=== PATIENT | female | born 1985 | race American Indian/Alaskan Native ===

== ENCOUNTER 2017-07-27 13:17 | Inpatient (IN) | payer OTHER ==
[2017-07-27 13:41] VITALS: BMI 51.2
[2017-07-27 14:34] LABS: BASO # 0.02 K/mm3 (0.0-2.0); BASO % 0.2 % (0.0-3.0); EOS # 0.2 (0.0-0.7); EOS % 1.8 % (1.5-5.0); GRAN # 3.25 (1.4-6.5); GRAN % 38.5 % (50.0-68.0); LYMPH # 4.5 (1.2-3.4); LYMPH % 53.3 % (22.0-35.0); MEAN CELL VOLUME 80.6 fl (80.0-105.0); MEAN CORPUSCULAR HGB CONC 32.3 g/dl (31.0-37.0); MEAN PLATELET VOLUME 9.6 fl (7.0-11.0); MONO # 0.5 (0.1-0.6); MONO % 6.2 % (1.0-6.0); RED CELL DISTRIBUTION WIDTH 15.2 % (11.5-14.5); WHITE BLOOD COUNT 8.4 10^3/ul (4.5-11.0)
[2017-07-27 14:40] LABS: INR 1.07 (0.93-1.08); PARTIAL THROMBOPLASTIN TIME 34.5 Seconds (25.1-36.5)
[2017-07-27 14:44] LABS: ALB/GLOB RATIO 1.1 (1.1-1.8); ALKALINE PHOSPHATASE 81 U/L (38-126); ALT/SGPT 32 U/L (7-56); AST/SGOT 22 U/L (14-36); BILIRUBIN,TOTAL 0.7 mg/dL (0.2-1.3); BLOOD UREA NITROGEN 8 mg/dL (7-21); CALCIUM 9.2 mg/dL (8.4-10.5); CARBON DIOXIDE 28 mmol/L (21-33); CHLORIDE 105 mmol/L (98-107); CHOLESTEROL 157 mg/dL (130-200); GFR AFRICAN-AMERICAN > 60; GLUCOSE,RANDOM 85 mg/dL (70-110); POTASSIUM 4.1 mmol/L (3.6-5.0); SODIUM 139 mmol/L (132-148); TOTAL PROTEIN 6.9 g/dL (5.8-8.3)
[2017-07-27 14:58] LABS: TROPONIN I < 0.01 ng/mL
--- NOTE | 2017-07-27 15:05 | CT ---
PROCEDURE: CT HEAD WITHOUT CONTRAST. HISTORY: focal weakness COMPARISON: None available. TECHNIQUE: Axial computed tomography images were obtained through the head/brain without intravenous contrast. Radiation dose: Total exam DLP = 629 mGy-cm. This CT exam was performed using one or more of the following dose reduction techniques: Automated exposure control, adjustment of the mA and/or kV according to patient size, and/or use of iterative reconstruction technique. FINDINGS: HEMORRHAGE: No intracranial hemorrhage. BRAIN: No mass effect or edema. No atrophy or chronic microvascular ischemic changes. VENTRICLES: Unremarkable. No hydrocephalus. CALVARIUM: Unremarkable. PARANASAL SINUSES: Unremarkable as visualized. No significant inflammatory changes. MASTOID AIR CELLS: Unremarkable as visualized. No inflammatory changes. OTHER FINDINGS: None. IMPRESSION: Normal CT of the Head.
--- NOTE | 2017-07-27 15:54 | ED PDOC ---
Arrival/HPI - General Chief Complaint: Weakness/Neurological Deficit Time Seen by Provider: 07/27/17 13:38 Historian: Patient - History of Present Illness Narrative History of Present Illness (Text): 07/27/17 15:55 32yo female with PMHx of TIA, legal blind present with complaint of left sided weakness x 3days. States she was diagnosed with TIA when she had similar symptoms 3years ago and it resolved with therapy. She denies dysathtria, facial drooping, headache, dizziness, chest pain, SOB, trauma, fever, back pain, any other complaint. Past Medical History - Provider Review Nursing Documentation Reviewed: Yes - Neurological Hx Transient Ischemic Attacks (TIA): Yes - HEENT Hx Blind: Yes (bilateral) - Psychiatric Hx Substance Use: No - Surgical History Hx Cholecystectomy: Yes Hx Eye Surgery: Yes - Anesthesia Hx Anesthesia: Yes Hx Anesthesia Reactions: No Hx Malignant Hyperthermia: No Family/Social History - Physician Review Nursing Documentation Reviewed: Yes Family/Social History: Unknown Family HX Smoking Status: Never Smoked Hx Alcohol Use: No Hx Substance Use: No Allergies/Home Meds Allergies/Adverse Reactions: Allergies No Known Allergies Allergy (Verified 07/27/17 13:43) Home Medications: Home Meds Medication Instructions Recorded Confirmed Aspirin [Ecotrin] 81 mg PO DAILY 07/27/17 07/27/17 Brimonidine Tartrate [Alphagan P 1 drop BOTHEYES BID 07/27/17 07/27/17 0.1 % Ophth] Omeprazole 20 mg PO BID 07/27/17 07/27/17 Pantoprazole [Protonix] 40 mg PO DAILY 07/27/17 07/27/17 Review of Systems - Physician Review All systems were reviewed & negative as marked: Yes - Review of Systems Constitutional: Normal Eyes: Normal ENT: Normal Respiratory: Normal Cardiovascular: Normal Gastrointestinal: Normal Genitourinary Female: Normal Musculoskeletal: Normal Skin: Normal Neurological: Focal Weakness. absent: Headache, Dizziness, Gait Changes, Speech Changes, Facial Droop Endocrine: Normal Hemo/Lymphatic: Normal Psychiatric: Normal Physical Exam Vital Signs Reviewed: Yes Vital Signs Temp Pulse Resp BP Pulse Ox 07/27/17 16:04 67 18 119/59 L 95 07/27/17 14:26 61 14 114/58 L 100 07/27/17 13:40 98.0 F 60 18 109/41 L 98 Temperature: Afebrile Blood Pressure: Normal Pulse: Regular Respiratory Rate: Normal Appearance: Positive for: Well-Appearing, Non-Toxic, Comfortable Pain Distress: None Mental Status: Positive for: Alert and Oriented X 3 Finger Stick Blood Glucose: 76 - Systems Exam Head: Present: Atraumatic, Normocephalic Pupils: Present: PERRL, Other (LEgally blind) Extroacular Muscles: Present: EOMI Conjunctiva: Present: Normal Mouth: Present: Moist Mucous Membranes Neck: Present: Normal Range of Motion Respiratory/Chest: Present: Clear to Auscultation, Good Air Exchange. No: Respiratory Distress, Accessory Muscle Use Cardiovascular: Present: Regular Rate and Rhythm, Normal S1, S2. No: Murmurs Abdomen: Present: Normal Bowel Sounds. No: Tenderness, Distention, Peritoneal Signs Back: Present: Normal Inspection Upper Extremity: Present: Normal Inspection. No: Cyanosis, Edema Lower Extremity: Present: Normal Inspection. No: Edema Neurological: Present: GCS=15, CN II-XII Intact, Speech Normal, Motor Func Grossly Intact, Normal Cerebellar Funct, Norm Deep Tendon Reflexes, Memory Normal, Other (LEft focal weakness). No: Normal Sensory Function (Decreased on left upper and lower extremities), Normal 2Pt Descrimination Skin: Present: Warm, Dry, Normal Color. No: Rashes Psychiatric: Present: Alert, Oriented x 3, Normal Insight, Normal Concentration Medical Decision Making ED Course and Treatment: 07/27/17 16:05 32yo female in ED for left sided weakness. Focal weakness of upper and lower extremity was noted. Lab was unremarkable with exception of Triglyceride which was elevated Head CT was negative CXR NAD PT will be admitted for TIA. She will need to see Neuro for further evaluation Case was DW Dr. Guerra and pt was admitted. she request Dr. Todd consult. - Lab Interpretations Lab Results: 07/27/17 14:17 07/27/17 14:17 Lab Results 07/27/17 14:17: Blood Type O NEGATIVE, Antibody Screen Negative, BBK History Checked No verified bt 07/27/17 14:17: Sodium 139, Potassium 4.1, Chloride 105, Carbon Dioxide 28, Anion Gap 10, BUN 8, Creatinine 0.8, Est GFR ( Amer) > 60, Est GFR (Non- Af Amer) > 60, Random Glucose 85, Calcium 9.2, Total Bilirubin 0.7, AST 22, ALT 32, Alkaline Phosphatase 81, Troponin I < 0.01, Total Protein 6.9, Albumin 3.6, Globulin 3.3, Albumin/Globulin Ratio 1.1, Triglycerides 304 H, Cholesterol 157, LDL Cholesterol Direct 82, HDL Cholesterol 30 07/27/17 14:17: PT 11.7, INR 1.07, APTT 34.5 07/27/17 14:17: WBC 8.4, RBC 4.34, Hgb 11.3 L, Hct 35.0 L, MCV 80.6, MCH 26.0, MCHC 32.3, RDW 15.2 H, Plt Count 269, MPV 9.6, Gran % 38.5 L, Lymph % (Auto) 53.3 H, [place] % (Auto) 6.2 H, Eos % (Auto) 1.8, Baso % (Auto) 0.2, Gran # 3.25, Lymph # 4.5 H, [place] # 0.5, Eos # 0.2, Baso # 0.02 - RAD Interpretation Radiology Orders: 07/27/17 14:02 CHEST PORTABLE [RAD] Stat 07/27/17 14:03 HEAD W/O CONTRAST [CT] Stat NIHSS Scale ([place]) Time Performed: 15:30 - How Severe is the Stoke 24 hours post onset S/S Level of Consciousness: 0=Alert LOC to Questions: 0=Both comments correct LOC to commands: 0=Obeys both correctly Facial: 0=Normal Motor Arm - Left: 1=Drift noted before 10 sec Motor Arm - Right: 0=No drift Motor Leg - Left: 1=Drift before 5 sec Motor Leg - Right: 0=No drift Sensory: 1=Mild to moderate loss Best Language: 0=No aphasia Dysarthia: 0=Normal articulation Extinction & Inattention (Neglect): 0=Normal, no object Disposition/Present on Arrival - Present on Arrival Any Indicators Present on Arrival: No History of DVT/PE: No History of Uncontrolled Diabetes: No Urinary Catheter: No History of Decub. Ulcer: No History Surgical Site Infection Following: None - Disposition Have Diagnosis and Disposition been Completed?: Yes Diagnosis: TIA (transient ischemic attack) Disposition: HOSPITALIZED Disposition Time: 16:00 Patient Problems: Current Active Problems Problem Status Onset TIA (transient ischemic attack) Acute Condition: FAIR Referrals: Patrick Hill MD [Primary Care Provider] - Follow up with primary Forms: Bon[employer] (Malagasy)
--- NOTE | 2017-07-27 17:01 | CARD ---
APPROVED REPORT EKG Measurement Heart [id number] <Conclusion> Normal sinus rhythm Normal ECG
[2017-07-27] MEDS ORDERED: Non Formulary Medication (Omeprazole [Omeprazole] 20 MG) PO SCH (18:00)
[2017-07-27] MEDS ORDERED: BRIMONIDINE TARTRATE BOTHEYES SCH (18:00)
[2017-07-27] MEDS: Brimonidine 0.15% 50 DROP/5 ML BOTTLE OU SCH (18:29)
[2017-07-27] MEDS ORDERED: Pneumococcal 23-Valent Vaccine IM ONE (20:33)
[2017-07-27] MEDS ORDERED: Influenza Vaccine 60 mcg/0.5 mL SYR (4YR UP) IM ONE (20:33)
[2017-07-28 07:13] LABS: HEMATOCRIT 36.8 % (36.0-48.0); MEAN CELL VOLUME 80.3 fl (80.0-105.0); MEAN CORPUSCULAR HGB CONC 32.3 g/dl (31.0-37.0); MEAN PLATELET VOLUME 9.1 fl (7.0-11.0); RED CELL DISTRIBUTION WIDTH 15.4 % (11.5-14.5); WHITE BLOOD COUNT 8.4 10^3/ul (4.5-11.0)
[2017-07-28 07:19] LABS: BLOOD UREA NITROGEN 8 mg/dL (7-21); CALCIUM 9.4 mg/dL (8.4-10.5); CARBON DIOXIDE 26 mmol/L (21-33); CHLORIDE 106 mmol/L (98-107); CHOLESTEROL 175 mg/dL (130-200); GFR AFRICAN-AMERICAN > 60; GLUCOSE,RANDOM 84 mg/dL (70-110); POTASSIUM 3.9 mmol/L (3.6-5.0); SODIUM 140 mmol/L (132-148)
[2017-07-28] MEDS: Pantoprazole 40 mg EC Tab PO SCH ×2 (08:27→17:21)
--- NOTE | 2017-07-28 09:27 | CP.PCM.CON ---
<Alvino King - Last Filed: 07/28/17 12:24> History of Present Illness - History of Present Illness History of Present Illness: Neurology consult note for Dr. Todd's service - Willis King PGY2 HPI: Patient is a 32 year-old female with past medical history of transient ischemic attack and legal blindness that presented to [facility] with complaints of left-sided weakness for the past 3 days. Patient reported that she began to feel weakness in her left upper and lower extremity on Tuesday associated with parasthesias in her left leg however ignored these symptoms believing that she may have just slept in an awkward position. She subsequently began to develop worsening of her weakness when ultimately she decided to come in on Tuesday due to being unable to hold/lift objects. Patient stated that she had similar symptoms 3-4 years prior when she went to [facility] for evaluation and was ultimately diagnosed with a TIA. She had undergone physical therapy post diagnoses and was more or less back to baseline. In the ED, a Head CT was done which revealed no acute intracranial abnormalities. EKG revealed normal sinus rhythm with no acute ST-T wave changes. Neurology consulted for evaluation for possible TIA/CVA. Denies chest pain, palpitations, SOB, abdominal pain, nausea, vomiting, fever, chills, cough. 12point ROS as per HPI above otherwise negative PMH: as stated above PSH: multiple eye surgeries, cholecystectomy Allergies: NKDA Family Hx: non-contributory Social Hx: Denies alcohol and illicit drug use Past Patient History - Past Social History Smoking Status: Never Smoked - CARDIAC Hx Cardiac Disorders: No - PULMONARY Hx Respiratory Disorders: Yes Hx Asthma: Yes ( A CHILD) - NEUROLOGICAL Hx Neurological Disorder: Yes Hx Transient Ischemic Attacks (TIA): Yes (2013) - HEENT Hx HEENT Problems: Yes (RETINAL DETACHMENT,GLAUCOMA,CATARACTS 12 YRS AGO WITH SX ) Hx Blind: Yes (bilateral) Hx Cataracts: Yes Hx Glaucoma: Yes - RENAL Hx Chronic Kidney Disease: No - ENDOCRINE/METABOLIC Hx Endocrine Disorders: No - HEMATOLOGICAL/ONCOLOGICAL Hx Blood Disorders: No - INTEGUMENTARY Hx Dermatological Problems: No - MUSCULOSKELETAL/RHEUMATOLOGICAL Hx Musculoskeletal Disorders: No Hx Falls: Yes - GASTROINTESTINAL Hx Gastrointestinal Disorders: No - GENITOURINARY/GYNECOLOGICAL Hx Genitourinary Disorders: No - PSYCHIATRIC Hx Psychophysiologic Disorder: No Hx Substance Use: No - SURGICAL HISTORY Hx Surgeries: Yes (EYE SX) Hx Cholecystectomy: Yes - ANESTHESIA Hx Anesthesia: Yes Hx Anesthesia Reactions: No Hx Malignant Hyperthermia: No Meds Allergies/Adverse Reactions: Allergies Allergy/AdvReac Type Severity Reaction Status Date / Time No Known Allergies Allergy Verified 07/27/17 18:05 - Medications Medications: Current Medications Aspirin (Ecotrin) 81 mg PO DAILY [facility] Brimonidine Tartrate (Alphagan P 0.15% Opht) 0 drop OU BID [facility] Last Admin: 07/27/17 18:29 Dose: 1 drop Pantoprazole Sodium (Protonix Ec Tab) 40 mg PO ACBD [facility] Last Admin: 07/28/17 08:27 Dose: 40 mg Physical Exam - Constitutional Appears: No Acute Distress - Head Exam Head Exam: ATRAUMATIC, NORMAL INSPECTION, NORMOCEPHALIC - Eye Exam Eye Exam: PERRL. absent: Conjunctival injection, Scleral icterus Additional comments: right eye strabismus - ENT Exam ENT Exam: Mucous Membranes Moist - Neck Exam Neck exam: Positive for: Normal Inspection. Negative for: Lymphadenopathy, Tenderness, Thyromegaly - Respiratory Exam Respiratory Exam: Clear to Auscultation Bilateral. absent: Rales, Rhonchi, Wheezes - Cardiovascular Exam Cardiovascular Exam: RRR, +S1, +S2. absent: Clicks, Gallop, JVD, Rubs - GI/Abdominal Exam GI & Abdominal Exam: Soft. absent: Firm, Guarding, Tenderness - Extremities Exam Extremities exam: Positive for: normal inspection. Negative for: pedal edema, tenderness - Neurological Exam Neurological exam: Alert, CN II-XII Intact, Oriented x3 Additional comments: awake, alert, oriented x3, answering questions appropriately right eye strabismus PERRL CN2-12 grossly intact right upper and lower extremity motor strength 5/5 left upper and lower extremity motor strength ~2-3/5 sensation decreased on the left side gait deferred - Psychiatric Exam Psychiatric exam: Normal Affect, Normal Mood - Skin Skin Exam: Dry, Intact, Normal Color, Warm Results - Vital Signs Recent Vital Signs: Last Vital Signs Temp 98.7 F 07/28/17 06:00 Pulse 68 07/28/17 06:00 Resp 20 07/28/17 06:00 BP 99/57 L 07/28/17 06:00 Pulse Ox 97 07/28/17 06:00 - Labs Result Diagrams: 07/28/17 06:20 07/28/17 06:20 Labs: Laboratory Results - last 24 hr 07/27/17 07/28/17 07/28/17 16:08 06:20 06:20 WBC RBC Hgb Hct MCV MCH MCHC RDW Plt Count MPV Sodium 140 Potassium 3.9 Chloride 106 Carbon Dioxide 26 Anion Gap 12 BUN 8 Creatinine 0.8 Est GFR ( Amer) > 60 Est GFR (Non-Af Amer) > 60 Random Glucose 84 Calcium 9.4 Iron 65 TIBC 238.9 L % Saturation 27 Triglycerides 240 H Cholesterol 175 LDL Cholesterol Direct 86 HDL Cholesterol 31 TSH 3rd Generation Blood Type Confirm O NEGATIVE 07/28/17 07/28/17 06:20 06:20 WBC 8.4 RBC 4.58 Hgb 11.9 L Hct 36.8 MCV 80.3 MCH 26.0 MCHC 32.3 RDW 15.4 H Plt Count 265 MPV 9.1 Sodium Potassium Chloride Carbon Dioxide Anion Gap BUN Creatinine Est GFR ( Amer) Est GFR (Non-Af Amer) Random Glucose Calcium Iron TIBC % Saturation Triglycerides Cholesterol LDL Cholesterol Direct HDL Cholesterol TSH 3rd Generation 3.67 Blood Type Confirm Assessment & Plan - Assessment and Plan (Free Text) Plan: 32yo female with history of TIA and legal blindness presents with left upper and lower extremity weakness for past 3 days. Neurology consulted for evaluation of possible TIA/CVA -Brain MRI has been ordered and is pending to evaluate for possible CVA. We will follow up these results. -In the meantime, recommend aspirin 81mg PO daily and lipitor 40mg PO HS for stroke prevention -Carotid doppler pending -Monitor and replete electrolytes as indicated -Avoid fluctuations in systolic BP; maintain systolic blood pressure between 120 -130 -Physical therapy/occupational therapy evaluation -EKG reviewed; normal sinus rhythm with no acute ST-T wave changes -Head CT reviewed; no acute intracranial abnormalities Patient seen and case discussed/reviewed with attending, Dr. Todd - Date & Time Date: 07/28/17 Time: 09:31 <Harman Todd - Last Filed: 07/28/17 13:39> Meds - Medications Medications: Current Medications Aspirin (Ecotrin) 81 mg PO DAILY [facility] Last Admin: 07/28/17 10:02 Dose: 81 mg Atorvastatin Calcium (Lipitor) 10 mg PO DIN [facility] Brimonidine Tartrate (Alphagan P 0.15% Opht) 0 drop OU BID [facility] Last Admin: 07/28/17 10:02 Dose: 1 drop Pantoprazole Sodium (Protonix Ec Tab) 40 mg PO ACBD [facility] Last Admin: 07/28/17 08:27 Dose: 40 mg Results - Vital Signs Recent Vital Signs: Last Vital Signs Temp 99.2 F 07/28/17 12:00 Pulse 69 07/28/17 12:00 Resp 18 07/28/17 12:00 BP 110/81 07/28/17 12:00 Pulse Ox 100 07/28/17 12:00 - Labs Result Diagrams: 07/28/17 06:20 07/28/17 06:20 Labs: Laboratory Results - last 24 hr 07/27/17 07/28/17 07/28/17 16:08 06:20 06:20 WBC RBC Hgb Hct MCV MCH MCHC RDW Plt Count MPV Sodium 140 Potassium 3.9 Chloride 106 Carbon Dioxide 26 Anion Gap 12 BUN 8 Creatinine 0.8 Est GFR ( Amer) > 60 Est GFR (Non-Af Amer) > 60 Random Glucose 84 Hemoglobin A1c Calcium 9.4 Iron 65 TIBC 238.9 L % Saturation 27 Triglycerides 240 H Cholesterol 175 LDL Cholesterol Direct 86 HDL Cholesterol 31 TSH 3rd Generation Blood Type Confirm O NEGATIVE 07/28/17 07/28/17 07/28/17 06:20 06:20 06:20 WBC 8.4 RBC 4.58 Hgb 11.9 L Hct 36.8 MCV 80.3 MCH 26.0 MCHC 32.3 RDW 15.4 H Plt Count 265 MPV 9.1 Sodium Potassium Chloride Carbon Dioxide Anion Gap BUN Creatinine Est GFR ( Amer) Est GFR (Non-Af Amer) Random Glucose Hemoglobin A1c 5.4 Calcium Iron TIBC % Saturation Triglycerides Cholesterol LDL Cholesterol Direct HDL Cholesterol TSH 3rd Generation 3.67 Blood Type Confirm Attending/Attestation - Attestation I have personally seen and examined this patient.: Yes I have fully participated in the care of the patient.: Yes I have reviewed all pertinent clinical information: Yes
[2017-07-28] MEDS: Brimonidine 0.15% 50 DROP/5 ML BOTTLE OU SCH ×2 (10:02→17:21)
[2017-07-28 13:43] LABS: FOLATE 17.8 ng/mL
--- NOTE | 2017-07-28 16:41 | US ---
PROCEDURE: Bilateral carotid artery duplex ultrasound HISTORY: Carotid stenosis PHYSICIAN(S): Sumanth Romero MD. TECHNIQUE: Duplex sonography and color-flow Doppler were used to evaluate the carotid bifurcations and limited segments of the vertebral arteries bilaterally. The exam is limited by body habitus. FINDINGS: There is mild smooth hypoechoic plaque noted at the carotid bifurcations bilaterally. The peak systolic velocity in the proximal right internal carotid artery is 84 cm/sec. This corresponds to a 20 to 39% proximal right ICA stenosis. Normal systolic velocities are noted in the proximal right external carotid artery. There is antegrade flow in the right vertebral artery. The peak systolic velocity in the proximal left internal carotid artery is 86 cm/sec. This corresponds to a 20 to 39% proximal left ICA stenosis. Normal systolic velocities are noted in the proximal left external carotid artery. There is antegrade flow in the left vertebral artery. IMPRESSION: 1. Bilateral 20-39% proximal ICA stenoses. 2. Antegrade flow in both vertebral arteries.
[2017-07-28] MEDS ORDERED: Gadodiamide 287 MG/ML VIAL (20ML) IV ONE (16:50)
--- NOTE | 2017-07-28 20:45 | HP ---
HISTORY OF PRESENT ILLNESS: The patient is a 32-year-old female with past medical history of TIA, blind bilaterally with complaining of left-sided weakness. Three days ago, states that she was diagnosed with TIA when she had similar symptoms 3 years ago and is resolved with therapy. She denies dysarthria, facial droop, headache, dizziness, chest pain, shortness of breath, trauma, fever, back pain, or neck pain. No hematuria. No hematochezia. As per the patient, she became blind when she was 20 years old due to retinal detachment. PAST MEDICAL HISTORY: Transient ischemic attack, blind bilaterally, cholecystectomy, and eye surgery. FAMILY HISTORY: Father and mother noncontributory. HABITS: Never smoked. No drugs. No ethanol. ALLERGIES: THE PATIENT IS NOT ALLERGIC TO ANY MEDICATIONS. HOME MEDICATIONS: Aspirin, eye drops, omeprazole, and Protonix. REVIEW OF SYSTEMS: The patient was seen and examined on the bedside in her room, lying down comfortably. No fatigue, not tired. No shortness of breath. No chest pain. No abdominal pain. No nausea or vomiting. No fever. No chills. Feeling of weakness in the left side; otherwise, no headache. No dizziness. No speech changes. No facial droop. PHYSICAL EXAMINATION: VITAL SIGNS: Temperature 98.0, pulse 60, respiratory rate 18, blood pressure 109/41, and pulse oximetry 98. HEENT: Head; normocephalic and atraumatic. Eyes; legally blind. Nose patent. Mucous membranes moist. NECK: Supple. No carotid bruits, JVD, or thyromegaly. CHEST: Bilaterally symmetrical. HEART: S1 and S2 positive. LUNGS: Clear to auscultation. ABDOMEN: Soft. Bowel sounds present. No organomegaly. EXTREMITIES: No edema. No cyanosis. NEUROLOGIC: The patient is awake and alert. Speech normal. Motor function test grossly normal. Normal cerebellar function. Memory normal. Left focal weakness. SKIN: Warm and dry. Normal color. LABORATORY DATA: White blood cell 8.4, hemoglobin 11.3, hematocrit 35.0, and platelets 269. Sodium 139, potassium 4.1, BUN 8, creatinine 0.8, and glucose 85. ASSESSMENT AND PLAN: Ms. Dhara Henderson is a 32-year-old lady with anemia, legally blind bilaterally, came with left-sided weakness, and rule out transient ischemic attack. Neurology consult called. CAT scan of the head done, reviewed by me. We will do bilateral carotid Doppler of the neck. We will give physical therapy. Normal CAT scan of the head. GI and DVT prophylaxis. Repeat labs. We will follow up. Emili Guerra MD MTDD
--- NOTE | 2017-07-28 21:19 | MRI ---
EXAM: MR Head Without and With Intravenous Contrast EXAM DATE/TIME: 07/28/2017 1:24 PM CLINICAL HISTORY: The patient age is 32 years old and is female; Signs and symptoms; Other: ? CVA; Additional info: R/O CVA Facility exam id and description: Mri br cs brain w wo contrast TECHNIQUE: Magnetic resonance images of the head/brain without and with intravenous contrast in multiple planes. CONTRAST: 15 mL of OMNISCAN administered intravenously. COMPARISON: CT - HEAD W/O CONTRAST 2017-07-27 14:46 FINDINGS: Artifacts: Artifactual foci are seen within the frontal cortices on the diffusion sequence. Brain: There is no definitive restricted diffusion within the brain to suggest acute ischemic change. There is no significant white matter disease. No cerebral edema. No abnormally enhancing intracranial mass is visualized. No midline shift. Ventricles: No ventriculomegaly. Bones/joints: There is a stable lamina papyracea defect of the medial right orbital wall. Sinuses: No acute sinusitis. Mastoid air cells: No mastoid effusion. Orbits: There is abnormal signal intensity within the medial aspect of the right optic globe, suggestive of hemorrhage or mass. Abnormal signal intensity is also identified involving the left optic globe. There is nonvisualization of the optic lenses. Sella: CSF signal intensity expands the sella. This can be associated with an empty sella or intracranial hypertension, although due to deviation of the pituitary stalk to the left, a cystic lesion is considered. There is no pathological enhancement within the sella. IMPRESSION: 1. There is no definitive restricted diffusion within the brain to suggest acute ischemic change. 2. CSF signal intensity expands the sella. This can be associated with an empty sella or intracranial hypertension, although due to deviation of the pituitary stalk to the left, a cystic lesion is considered. There is no pathological enhancement within the sella. A follow-up MRI is recommended. 3. There is abnormal signal intensity within the medial aspect of the right optic globe, suggestive of hemorrhage or mass. Abnormal signal intensity is also identified involving the left optic globe. Further clinical evaluation is recommended. 4. Additional findings described above.
--- NOTE | 2017-07-29 00:58 | PN ---
DATE: SUBJECTIVE: The patient is a 32-year-old female. The patient is seen and examined on the bedside. Denies chest pain or palpitation. No shortness of breath. No abdominal pain. No nausea, vomiting or diarrhea. No chills. No fevers. Still having Marie catheter and want to get rid of that. The patient is bilaterally blind. PHYSICAL EXAMINATION VITAL SIGNS: Temperature 98.2, pulse 88, respiratory rate 18, and blood pressure 110/81. HEENT: Head; normocephalic and atraumatic. Eyes closed. Nose patent. Mucous membranes moist. NECK: Supple. No carotid bruits, JVD, or thyromegaly. CHEST: Bilaterally symmetrical. HEART: S1 and S2 positive. LUNGS: Clear to auscultation. ABDOMEN: Soft. Bowel sounds present. No organomegaly. EXTREMITIES: No edema. No cyanosis. NEUROLOGIC: The patient is awake, blind and oriented x3. MEDICATIONS: Ecotrin,Lipitor, Protonix, and eye drops. LABORATORY DATA: White blood cell 8.4, hemoglobin 11.9, hematocrit 36.8, and platelets 265. Sodium 140, potassium 3.9, BUN 8, creatinine 0.8, and glucose of 85. TIBC 238.9. Triglyceride 240. ASSESSMENT AND PLAN: Ms. Santiago Jules is a 32-year-old lady with hypertriglyceridemia, anemia, went for MRI of the brain and bilateral carotid artery ultrasound. There is no definite restrictive diffusion within the brain to suggest acute ischemic changes. Cerebrospinal fluid signal intensity expanding the sella. This can be associated with an empty sella or intracranial hypertension, although due to deviation of the pituitary stalk to the left, the cystic lesion is considered. There is no pathological enhancement within the sella. Follow up MRI is recommended. There is abnormal signal intensity within the medial aspect of the right optic globe suggestive of hemorrhage or masses. Abnormal signal intensity is also identified involving the left optic globe. Further evaluation is recommended. The patient is bilaterally blind due to retinal detachment. Has second time transient ischemic attack, seen by Neurologist, Dr. Todd. Neurology recommended 81 mg of aspirin and Lipitor 40 mg. Monitoring the platelets and electrolytes. Physical Therapy and Occupational Therapy. GI and DVT prophylaxis. Repeat labs. We will follow up. Emili Guerra MD
[2017-07-29] MEDS: Pantoprazole 40 mg EC Tab PO SCH ×2 (08:12→18:09)
[2017-07-29] MEDS: Brimonidine 0.15% 50 DROP/5 ML BOTTLE OU SCH ×2 (10:56→18:09)
--- NOTE | 2017-07-29 12:55 | CP.PCM.PN ---
<Alvino King - Last Filed: 07/29/17 16:06> Subjective - Date & Time of Evaluation Date of Evaluation: 07/29/17 Time of Evaluation: 12:52 - Subjective Subjective: Neurology progress note for Dr. Todd's service - Willis King PGY2 Patient seen and examined at bedside. No acute overnight events or new complaints. Denies cp, palpitations, SOB. MRI reviewed in conjunction with radiology. Objective - Vital Signs/Intake and Output Vital Signs (last 24 hours): Temp Pulse Resp BP Pulse Ox 98.6 F 76 18 124/73 99 07/29/17 11:48 07/29/17 11:48 07/29/17 11:48 07/29/17 11:48 07/29/17 11:48 Intake and Output: 07/29/17 07/29/17 06:59 18:59 Intake Total 120 Output Total 0 Balance 120 - Medications Medications: Current Medications Aspirin (Ecotrin) 81 mg PO DAILY [facility] Last Admin: 07/29/17 10:56 Dose: 81 mg Atorvastatin Calcium (Lipitor) 40 mg PO DIN [facility] Brimonidine Tartrate (Alphagan P 0.15% Opht) 0 drop OU BID [facility] Last Admin: 07/29/17 10:56 Dose: 1 drop Pantoprazole Sodium (Protonix Ec Tab) 40 mg PO ACBD [facility] Last Admin: 07/29/17 08:12 Dose: 40 mg - Labs Labs: 07/28/17 06:20 07/28/17 06:20 PT 11.7 SECONDS (9.4-12.5) 07/27/17 14:17 INR 1.07 (0.93-1.08) 07/27/17 14:17 APTT 34.5 Seconds (25.1-36.5) 07/27/17 14:17 - Constitutional Appears: No Acute Distress - Eye Exam Additional comments: legally blind strabismus - ENT Exam ENT Exam: Mucous Membranes Moist - Respiratory Exam Respiratory Exam: Clear to Ausculation Bilateral. absent: Rales, Rhonchi, Wheezes - Cardiovascular Exam Cardiovascular Exam: RRR, +S1, +S2. absent: Clicks, Gallop, JVD, Rubs, Murmur - GI/Abdominal Exam GI & Abdominal Exam: Soft, Normal Bowel Sounds. absent: Distended, Firm, Guarding, Rigid, Tenderness, Rebound - Extremities Exam Extremities Exam: Normal Inspection. absent: Pedal Edema, Tenderness - Neurological Exam Neurological Exam: Alert, Awake, Oriented x3 Additional comments: awake, alert, oriented x3, answering questions appropriately CN2-12 grossly intact right upper and lower extremity motor strength 5/5 left upper and lower extremity motor strength ~2-3/5 sensation decreased on the left side gait deferred Assessment and Plan - Assessment and Plan (Free Text) Plan: 32yo female with history of TIA and legal blindness presents with left upper and lower extremity weakness for past 3 days. Neurology consulted for evaluation of possible TIA/CVA -Brain MRI has been reviewed in conjunction with radiology; Recommend outpatient follow up with neurosurgery -In the meantime, recommend aspirin 81mg PO daily and lipitor 40mg PO HS for stroke prevention -Carotid doppler reviewed -Monitor and replete electrolytes as indicated -Avoid fluctuations in systolic BP; maintain systolic blood pressure between 120 -130 -Physical therapy/occupational therapy evaluation -EKG reviewed; normal sinus rhythm with no acute ST-T wave changes -Head CT reviewed; no acute intracranial abnormalities Patient seen and case discussed/reviewed with attending, Dr. Todd <Harman Todd - Last Filed: 07/29/17 16:23> Objective - Vital Signs/Intake and Output Vital Signs (last 24 hours): Temp Pulse Resp BP Pulse Ox 98.6 F 76 18 124/73 99 07/29/17 11:48 07/29/17 11:48 07/29/17 11:48 07/29/17 11:48 07/29/17 11:48 Intake and Output: 07/29/17 07/29/17 06:59 18:59 Intake Total 120 300 Output Total 0 600 Balance 120 -300 - Medications Medications: Current Medications Aspirin (Ecotrin) 81 mg PO DAILY [facility] Last Admin: 07/29/17 10:56 Dose: 81 mg Atorvastatin Calcium (Lipitor) 40 mg PO DIN [facility] Brimonidine Tartrate (Alphagan P 0.15% Opht) 0 drop OU BID [facility] Last Admin: 07/29/17 10:56 Dose: 1 drop Pantoprazole Sodium (Protonix Ec Tab) 40 mg PO ACBD [facility] Last Admin: 07/29/17 08:12 Dose: 40 mg - Labs Labs: 07/28/17 06:20 07/28/17 06:20 PT 11.7 SECONDS (9.4-12.5) 07/27/17 14:17 INR 1.07 (0.93-1.08) 07/27/17 14:17 APTT 34.5 Seconds (25.1-36.5) 07/27/17 14:17 Attending/Attestation - Attestation I have personally seen and examined this patient.: Yes I have fully participated in the care of the patient.: Yes I have reviewed all pertinent clinical information, including history, physical exam and plan: Yes
--- NOTE | 2017-07-29 21:01 | CP.PCM.PN ---
Subjective - Date & Time of Evaluation Date of Evaluation: 07/29/17 Time of Evaluation: 21:01 - Subjective Subjective: Patient was seen at bedside. Complains of pain in centre of neck. Also has some numbness in left arm, same as she came in with. Has no other complaints. Denies any injury. No chest pain , no sob. Medical record was reviewed. This 32 year old woman was admitted with left sided weakness. Has PMH of TIA, bilateral blindness, cholecystectomy, eye surgery. Objective - Vital Signs/Intake and Output Vital Signs (last 24 hours): Temp Pulse Resp BP Pulse Ox 98.5 F 76 18 110/63 97 07/29/17 16:00 07/29/17 18:00 07/29/17 16:00 07/29/17 16:00 07/29/17 16:00 Intake and Output: 07/29/17 07/30/17 18:59 06:59 Intake Total 300 Output Total 600 Balance -300 - Medications Medications: Current Medications Aspirin (Ecotrin) 81 mg PO DAILY [facility] Last Admin: 07/29/17 10:56 Dose: 81 mg Atorvastatin Calcium (Lipitor) 40 mg PO DIN [facility] Last Admin: 07/29/17 18:09 Dose: 40 mg Brimonidine Tartrate (Alphagan P 0.15% Opht) 0 drop OU BID [facility] Last Admin: 07/29/17 18:09 Dose: 1 drop Pantoprazole Sodium (Protonix Ec Tab) 40 mg PO ACBD [facility] Last Admin: 07/29/17 18:09 Dose: 40 mg - Labs Labs: 07/28/17 06:20 07/28/17 06:20 PT 11.7 SECONDS (9.4-12.5) 07/27/17 14:17 INR 1.07 (0.93-1.08) 07/27/17 14:17 APTT 34.5 Seconds (25.1-36.5) 07/27/17 14:17 Laboratory Last Values WBC 8.4 10^3/ul (4.5-11.0) 07/28/17 06:20 RBC 4.58 10^6/uL (3.5-6.1) 07/28/17 06:20 Hgb 11.9 g/dL (12.0-16.0) L 07/28/17 06:20 Hct 36.8 % (36.0-48.0) 07/28/17 06:20 MCV 80.3 fl (80.0-105.0) 07/28/17 06:20 MCH 26.0 pg (25.0-35.0) 07/28/17 06:20 MCHC 32.3 g/dl (31.0-37.0) 07/28/17 06:20 RDW 15.4 % (11.5-14.5) H 07/28/17 06:20 Plt Count 265 10^3/uL (120.0-450.0) 07/28/17 06:20 MPV 9.1 fl (7.0-11.0) 07/28/17 06:20 Gran % 38.5 % (50.0-68.0) L 07/27/17 14:17 Lymph % (Auto) 53.3 % (22.0-35.0) H 07/27/17 14:17 Wake % (Auto) 6.2 % (1.0-6.0) H 07/27/17 14:17 Eos % (Auto) 1.8 % (1.5-5.0) 07/27/17 14:17 Baso % (Auto) 0.2 % (0.0-3.0) 07/27/17 14:17 Gran # 3.25 (1.4-6.5) 07/27/17 14:17 Lymph # 4.5 (1.2-3.4) H 07/27/17 14:17 Wake # 0.5 (0.1-0.6) 07/27/17 14:17 Eos # 0.2 (0.0-0.7) 07/27/17 14:17 Baso # 0.02 K/mm3 (0.0-2.0) 07/27/17 14:17 PT 11.7 SECONDS (9.4-12.5) 07/27/17 14:17 INR 1.07 (0.93-1.08) 07/27/17 14:17 APTT 34.5 Seconds (25.1-36.5) 07/27/17 14:17 Sodium 140 mmol/L (132-148) 07/28/17 06:20 Potassium 3.9 mmol/L (3.6-5.0) 07/28/17 06:20 Chloride 106 mmol/L (98-107) 07/28/17 06:20 Carbon Dioxide 26 mmol/L (21-33) 07/28/17 06:20 Anion Gap 12 (10-20) 07/28/17 06:20 BUN 8 mg/dL (7-21) 07/28/17 06:20 Creatinine 0.8 mg/dl (0.7-1.2) 07/28/17 06:20 Est GFR ( Amer) > 60 07/28/17 06:20 Est GFR (Non-Af Amer) > 60 07/28/17 06:20 POC Glucose (mg/dL) 76 mg/dL (65-110) 07/27/17 14:08 Random Glucose 84 mg/dL (70-110) 07/28/17 06:20 Hemoglobin A1c 5.4 % (4.2-6.5) 07/28/17 06:20 Calcium 9.4 mg/dL (8.4-10.5) 07/28/17 06:20 Iron 65 ug/dL (45-180) 07/28/17 06:20 TIBC 238.9 ug/dL (250-450) L 07/28/17 06:20 % Saturation 27 (20-55) 07/28/17 06:20 Total Bilirubin 0.7 mg/dL (0.2-1.3) 07/27/17 14:17 AST 22 U/L (14-36) 07/27/17 14:17 ALT 32 U/L (7-56) 07/27/17 14:17 Alkaline Phosphatase 81 U/L (38-126) 07/27/17 14:17 Troponin I < 0.01 ng/mL 07/27/17 14:17 Total Protein 6.9 g/dL (5.8-8.3) 07/27/17 14:17 Albumin 3.6 g/dL (3.0-4.8) 07/27/17 14:17 Globulin 3.3 gm/dL 07/27/17 14:17 Albumin/Globulin Ratio 1.1 (1.1-1.8) 07/27/17 14:17 Triglycerides 240 mg/dL (35-160) H 07/28/17 06:20 Cholesterol 175 mg/dL (130-200) 07/28/17 06:20 LDL Cholesterol Direct 86 mg/dL (0-129) 07/28/17 06:20 HDL Cholesterol 31 mg/dL (29-60) 07/28/17 06:20 Vitamin B12 359 pg/mL (239-931) 07/28/17 06:20 Folate 17.8 ng/mL 07/28/17 06:20 TSH 3rd Generation 3.67 mIU/mL (0.46-4.68) 07/28/17 06:20 Blood Type O NEGATIVE 07/27/17 14:17 Blood Type Confirm O NEGATIVE 07/27/17 16:08 Antibody Screen Negative 07/27/17 14:17 BBK History Checked No verified bt 07/27/17 14:17 - Constitutional Appears: Well, No Acute Distress - Head Exam Head Exam: ATRAUMATIC, NORMAL INSPECTION, NORMOCEPHALIC - Eye Exam Additional comments: Bilateral blindness. - ENT Exam ENT Exam: Normal External Ear Exam - Neck Exam Neck Exam: Normal Inspection - Respiratory Exam Respiratory Exam: NORMAL BREATHING PATTERN - Cardiovascular Exam Cardiovascular Exam: absent: JVD - GI/Abdominal Exam GI & Abdominal Exam: absent: Distended - Rectal Exam Rectal Exam: Deferred - Exam Additional comments: Deferred. - Extremities Exam Extremities Exam: Normal Inspection - Back Exam Back Exam: NORMAL INSPECTION - Neurological Exam Neurological Exam: Alert, Oriented x3 - Psychiatric Exam Psychiatric exam: Normal Affect, Normal Mood - Skin Skin Exam: Normal Color Assessment and Plan - Assessment and Plan (Free Text) Assessment: Neck pain. Left arm tingling. Obesity. Bilateral blindness. Hx TIA. Elevated triglycerides. Plan: Tylenol 975 mg PO x 1. Continue present management as per PMD.
--- NOTE | 2017-07-30 00:35 | CP.PCM.PN ---
<ChaneyMagdalena - Last Filed: 07/30/17 00:30> Subjective - Date & Time of Evaluation Date of Evaluation: 07/29/17 Time of Evaluation: 10:30 - Subjective Subjective: 32yr Black female with h/o strabismus, TIA, L upper & L lower extremity weakness. She is legally blind. Marie catheter was removed and she reports being able to void w/o any urinary retention. She is resting comfortably in bed. Denies any SOB, constipation, N/V, diarrhea, chills, urinary changes, or distress. Objective - Vital Signs/Intake and Output Vital Signs (last 24 hours): Temp Pulse Resp BP Pulse Ox 98.5 F 76 18 110/63 97 07/29/17 16:00 07/29/17 18:00 07/29/17 16:00 07/29/17 16:00 07/29/17 16:00 Intake and Output: 07/29/17 07/30/17 18:59 06:59 Intake Total 300 Output Total 600 Balance -300 - Medications Medications: Current Medications Aspirin (Ecotrin) 81 mg PO DAILY [facility] Last Admin: 07/29/17 10:56 Dose: 81 mg Atorvastatin Calcium (Lipitor) 40 mg PO DIN [facility] Last Admin: 07/29/17 18:09 Dose: 40 mg Brimonidine Tartrate (Alphagan P 0.15% Opht) 0 drop OU BID [facility] Last Admin: 07/29/17 18:09 Dose: 1 drop Pantoprazole Sodium (Protonix Ec Tab) 40 mg PO ACBD [facility] Last Admin: 07/29/17 18:09 Dose: 40 mg - Labs Labs: 07/28/17 06:20 07/28/17 06:20 PT 11.7 SECONDS (9.4-12.5) 07/27/17 14:17 INR 1.07 (0.93-1.08) 07/27/17 14:17 APTT 34.5 Seconds (25.1-36.5) 07/27/17 14:17 - Constitutional Appears: Well - Head Exam Head Exam: NORMOCEPHALIC - Eye Exam Additional comments: legally blind, strabismus present - ENT Exam ENT Exam: Mucous Membranes Moist - Neck Exam Neck Exam: Full ROM, Normal Inspection - Respiratory Exam Respiratory Exam: Clear to Ausculation Bilateral, NORMAL BREATHING PATTERN - Cardiovascular Exam Cardiovascular Exam: REGULAR RHYTHM, +S1, +S2 - GI/Abdominal Exam GI & Abdominal Exam: Soft, Normal Bowel Sounds - Extremities Exam Extremities Exam: Normal Inspection - Neurological Exam Neurological Exam: Alert, Awake, Oriented x3 - Psychiatric Exam Psychiatric exam: Normal Affect, Normal Mood - Skin Skin Exam: Dry, Intact, Normal Color, Warm Assessment and Plan (1) TIA (transient ischemic attack) Status: Acute (2) Impaired vision in both eyes Status: Chronic - Assessment and Plan (Free Text) Plan: Continue prescribed regimen. Will continue to follow patient. Dr. Todd : recommends asa, lipitor for stroke prevention, PT/OT eval. aware of MRI results. Reviewed: Brain MRI (+) CSF signal intensity expands sella. possible empty sella or intercranial hypertension or cystic lesion. abn signal intensity medial aspect of R optic globe, possible hemorrhage or mass. abn signal intensity L optic globe. Recommend f/u MRI. Carotid doppler (+) b/l 20-39% proximal ICA stenosis, antegrade flow in both vetebral arteries. CT head (-) WNL ECG (-) NSR <Emili Guerra - Last Filed: 07/31/17 09:40> Objective - Vital Signs/Intake and Output Vital Signs (last 24 hours): Temp Pulse Resp BP Pulse Ox 98.9 F 67 20 108/57 L 100 07/31/17 06:00 07/31/17 06:00 07/31/17 06:00 07/31/17 06:00 07/31/17 06:00 Intake and Output: 07/31/17 07/31/17 06:59 18:59 Intake Total 180 Balance 180 - Medications Medications: Current Medications Acetaminophen (Tylenol 325mg Tab) 650 mg PO Q6H PRN PRN Reason: Pain, moderate (4-7) Last Admin: 07/31/17 08:28 Dose: 650 mg Aspirin (Ecotrin) 81 mg PO DAILY [facility] Last Admin: 07/30/17 10:40 Dose: 81 mg Atorvastatin Calcium (Lipitor) 40 mg PO DIN [facility] Last Admin: 07/30/17 17:14 Dose: 40 mg Brimonidine Tartrate (Alphagan P 0.15% Opht) 0 drop OU BID [facility] Last Admin: 07/30/17 17:14 Dose: 2 drop Pantoprazole Sodium (Protonix Ec Tab) 40 mg PO ACBD [facility] Last Admin: 07/31/17 08:25 Dose: 40 mg - Labs Labs: 07/28/17 06:20 07/28/17 06:20 PT 11.7 SECONDS (9.4-12.5) 07/27/17 14:17 INR 1.07 (0.93-1.08) 07/27/17 14:17 APTT 34.5 Seconds (25.1-36.5) 07/27/17 14:17 Assessment and Plan - Assessment and Plan (Free Text) Plan: pt is seen and examined at the bed side , looking comfortable . no n,v,d or gomez , neuro is on the case , getting pt , looking for rehab . cont. same treatment
[2017-07-30] MEDS: Pantoprazole 40 mg EC Tab PO SCH ×2 (08:16→17:14)
[2017-07-30] MEDS: Brimonidine 0.15% 50 DROP/5 ML BOTTLE OU SCH ×2 (10:40→17:14)
[2017-07-30 11:48] VITALS: RESP 20
--- NOTE | 2017-07-31 04:12 | PN ---
DATE: SUBJECTIVE: The patient is a 32-year-old female. The patient is seen and examined on the bedside. Looking comfortable. No nausea, vomiting or diarrhea. No hematuria or hematochezia. No swelling of legs. No chest pain. No palpitation. No headache or dizziness. PHYSICAL EXAMINATION VITAL SIGNS: Temperature 97.1, pulse 70, blood pressure 95/51, respiratory rate 20. HEENT: Head; normocephalic and atraumatic. Eyes; extraocular muscles intact. Conjunctivae clear. The patient is bilaterally blind. Nose patent. NECK: Supple. No carotid bruits, JVD, or thyromegaly. CHEST: Bilaterally symmetrical. HEART: S1 and S2 positive. LUNGS: Clear to auscultation. ABDOMEN: Soft. Bowel sounds present. No organomegaly. EXTREMITIES: No edema. No cyanosis. NEUROLOGIC: The patient is awake, alert. Moving all 4 extremities. No focal deficits. MEDICATIONS: Amlodipine, Alphagan, Ecotrin,Lipitor, Protonix, LABORATORY DATA: We do not have recent labs today, but I reviewed old labs. ASSESSMENT AND PLAN: Ms. Jules is a 32-year-old lady bilaterally blind, history of transient ischemic attack came with left upper and lower extremity weakness for past 3 days, history of transient ischemic attack/cerebrovascular accident, brain MRI has been reviewed with conjunction with Radiology. Recommending outpatient followup with Neurosurgery and meantime recommending aspirin, Lipitor. Carotid Doppler of the neck is done, reviewed having neck pain and gave Tylenol order, monitoring electrolytes, getting physical therapy, waiting for insurance approval. Physical therapy, gastrointestinal and deep venous thrombosis prophylaxis. We will follow up. Emili Guerra MD INES
[2017-07-31] MEDS: Pantoprazole 40 mg EC Tab PO SCH ×2 (08:25→17:56)
[2017-07-31 09:52] LABS: MEAN CELL VOLUME 80.6 fl (80.0-105.0); MEAN CORPUSCULAR HEMOGLOBIN 26.4 pg (25.0-35.0); MEAN CORPUSCULAR HGB CONC 32.8 g/dl (31.0-37.0); MEAN PLATELET VOLUME 9.2 fl (7.0-11.0); RED CELL DISTRIBUTION WIDTH 15.2 % (11.5-14.5); WHITE BLOOD COUNT 9.7 10^3/ul (4.5-11.0)
[2017-07-31 10:14] LABS: BLOOD UREA NITROGEN 10 mg/dL (7-21); CALCIUM 9.5 mg/dL (8.4-10.5); CARBON DIOXIDE 26 mmol/L (21-33); CHLORIDE 104 mmol/L (98-107); GFR AFRICAN-AMERICAN > 60; GLUCOSE,RANDOM 113 mg/dL (70-110); POTASSIUM 3.7 mmol/L (3.6-5.0); SODIUM 141 mmol/L (132-148)
[2017-07-31] MEDS: Brimonidine 0.15% 50 DROP/5 ML BOTTLE OU SCH ×2 (11:46→17:57)
--- NOTE | 2017-07-31 23:08 | PN ---
DATE: SUBJECTIVE: The patient is a 32-year-old female. The patient is seen and examined on the bedside. Looking comfortable. No nausea, vomiting or diarrhea. No hematuria or hematochezia. No fever. No chills. No headache or dizziness. PHYSICAL EXAMINATION: VITAL SIGNS: Temperature 98, pulse 80, blood pressure 103/52 and respiratory rate 20. HEENT: Head is normocephalic and atraumatic. Eyes; PERRLA. Extraocular muscles intact. Conjunctivae clear. Nose patent. Mucous membranes moist. NECK: Supple. No carotid bruit, JVD or thyromegaly. CHEST: Bilaterally symmetrical. HEART: S1 and S2 positive. LUNGS: Clear to auscultation. ABDOMEN: Soft. Bowel sounds present. No organomegaly. EXTREMITIES: No edema. No cyanosis. NEUROLOGICAL: The patient is awake and alert. MEDICATIONS: Ecotrin, Lipitor, Protonix, Tylenol and eye drops. LABORATORY DATA: White blood cell 9.7, hemoglobin 12.8, hematocrit 31.0 and platelets 288. Sodium 141, potassium 3.7, BUN 10, creatinine 0.9 and glucose 113. 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 Neurologist is on the case. Gastrointestinal and deep venous thrombosis prophylaxis. Physical therapy. We will follow up. Emili Guerra MD MTDD
[2017-08-01] MEDS: Pantoprazole 40 mg EC Tab PO SCH ×2 (08:30→16:34)
[2017-08-01] MEDS: Brimonidine 0.15% 50 DROP/5 ML BOTTLE OU SCH ×2 (09:06→17:15)
[2017-08-01 18:11] VITALS: BP 106/46; PULSE 78; TEMP 98.2; O2SAT 100
--- NOTE | 2017-08-02 20:04 | DS ---
CHIEF COMPLAINT: Left-sided weakness. HISTORY OF PRESENT ILLNESS: Ms. Dhara Henderson is a 32-year-old female with past medical history of TIA, bilaterally blind, came in with weakness of the left side, but in fact 3 days ago it started. Patient already has history of TIA, was recovered with physical therapy. Denies nausea, vomiting, diarrhea, fever, chills. We admitted the patient, did CAT scan of the head, carotid Doppler of the neck, seen by neurologist, Dr. Todd, cleared for discharge, needs some neurology workup as outpatient. We will get rehab in [facility]. Patient lives alone. She is noted well to do her ADL. Discharge home is not safe. PAST MEDICAL HISTORY: Transient ischemic attack, blind bilaterally, cholecystectomy, eye surgery. FAMILY HISTORY: Father and mother, noncontributory. HABITS: Never smoked, no drugs, no ethanol. ALLERGIES: PATIENT IS NOT ALLERGIC WITH ANY MEDICATIONS. HOME MEDICATIONS: Reviewed by me. REVIEW OF SYSTEMS: Patient is seen and examined on the bedside, looking comfortable. No nausea, vomiting, diarrhea. No hematuria or hematochezia. No swelling of the legs. No chest pain. No palpitations. No fever. No chills. PHYSICAL EXAMINATION: VITAL SIGNS: Temperature 98.2, pulse 78, blood pressure 106/42, respiratory rate 20. HEENT: Head is normocephalic and atraumatic. Eyes; closed. Nose is patent. Mucous membranes moist. NECK: Supple. No carotid bruits. No JVD or thyromegaly. CHEST: Bilaterally symmetrical. HEART: S1 and S2 positive. LUNGS: Clear to auscultation. ABDOMEN: Soft. Bowel sounds positive. No organomegaly. EXTREMITIES: No edema. No cyanosis. NEUROLOGIC: The patient is awake and alert. LABORATORY DATA: White blood cell 9.7, hemoglobin 12.8, hematocrit 39.0, platelets 288. Sodium 141, potassium 3.7, BUN 10, creatinine 0.9, glucose 113, iron 65, ASSESSMENT AND PLAN: Ms. Dhara Henderson is 32 years old lady with hyperglycemia, iron deficiency, hypertriglyceridemia, history of anemia, bilaterally bind, history of transient ischemic attack, obesity, came with left-sided weakness, seen by neurologist, history of retinal detachment. Brain MRI and bilateral carotid Doppler reviewed. Neurologist cleared the patient for discharge for physical therapy and continued care, needing neurosurgery follow up as outpatient. Patient is discharged to [facility]. Emili Guerra MD IN[facility]
== END 2017-08-01 18:13 | DRG 69 ==
LOC: ED 13:17 → ERH 15:56 → 3RSO 16:37
PROVIDERS: ADMIT Internal Medicine; ATTEND Internal Medicine
DX: G45.9 Transient cerebral ischemic attack, unspecified (principal); H33.20 Serous retinal detachment, unspecified eye; E78.1 Pure hyperglyceridemia; E66.9 Obesity, unspecified; D64.9 Anemia, unspecified; H54.8 Legal blindness, as defined in USA; E78.00 Pure hypercholesterolemia, unspecified; H40.9 Unspecified glaucoma; Z87.09 Personal history of other diseases of the respiratory system; Z79.82 Long term (current) use of aspirin; Z79.899 Other long term (current) drug therapy; Z86.73 Personal history of transient ischemic attack (TIA), and cerebral infarction without residual deficits; Z90.49 Acquired absence of other specified parts of digestive tract; R40.2412 Glasgow coma scale score 13-15, at arrival to emergency department; H26.9 Unspecified cataract; M54.2 Cervicalgia

== ENCOUNTER 2017-11-13 16:24 | Emergency (ER) | payer OTHER ==
[2017-11-13 16:24] VITALS: BMI 51.2
--- NOTE | 2017-11-13 16:44 | ED PDOC ---
"Arrival/HPI - General Time Seen by Provider: 11/13/17 16:44 Historian: Patient - History of Present Illness Narrative History of Present Illness (Text): 11/13/17 16:44 32 y/o female, pmh including gastritis/TIA/blind, nkda, c/o abdominal pain started this morning. Abdominal pain, aching pain, associated with nausea/ vomiting, no diarrhea, no rash, no flank pain, no urinary symptom, no rash, no night sweat, no other medical or psychological complaints. Past Medical History - Provider Review Nursing Documentation Reviewed: Yes - Cardiac Hx Cardiac Disorders: No - Pulmonary Hx Respiratory Disorders: Yes Hx Asthma: Yes ( A CHILD) - Neurological Hx Neurological Disorder: Yes Hx Transient Ischemic Attacks (TIA): Yes (2013) - HEENT Hx HEENT Disorder: Yes (RETINAL DETACHMENT,GLAUCOMA,CATARACTS 12 YRS AGO WITH SX ) Hx Blind: Yes (bilateral) Hx Cataracts: Yes Hx Glaucoma: Yes - Renal Hx Renal Disorder: No - Endocrine/Metabolic Hx Endocrine Disorders: No - Hematological/Oncological Hx Blood Disorders: No - Integumentary Hx Dermatological Disorder: No - Musculoskeletal/Rheumatological Hx Musculoskeletal Disorders: No Hx Falls: Yes - Gastrointestinal Hx Gastrointestinal Disorders: No - Genitourinary/Gynecological Hx Genitourinary Disorders: No - Psychiatric Hx Psychophysiologic Disorder: No Hx Substance Use: No - Surgical History Hx Cholecystectomy: Yes - Anesthesia Hx Anesthesia: Yes Hx Anesthesia Reactions: No Hx Malignant Hyperthermia: No Family/Social History - Physician Review Nursing Documentation Reviewed: Yes Family/Social History: Unknown Family HX Smoking Status: Never Smoked Hx Alcohol Use: No Hx Substance Use: No Allergies/Home Meds Allergies/Adverse Reactions: Allergies No Known Allergies Allergy (Verified 11/13/17 16:40) Home Medications: Home Meds Medication Instructions Recorded Confirmed Aspirin [Ecotrin] 81 mg PO DAILY 07/27/17 11/13/17 Brimonidine Tartrate [Alphagan P 1 drop BOTHEYES BID 07/27/17 11/13/17 0.1 % Ophth] Dorzolamide 2%/Timolol 0.5% 2 % OU BID 07/27/17 11/13/17 [Cosopt 2%-0.5% Opht] Multivitamin [Multivitamins] 1 each PO DAILY 07/27/17 11/13/17 Ketoconazole 2% Cr [Nizoral] 1 apful TOP BID 11/13/17 11/13/17 Review of Systems - Review of Systems Constitutional: absent: Fatigue, Fevers Eyes: absent: Vision Changes ENT: absent: Hearing Changes Respiratory: absent: SOB, Cough Cardiovascular: absent: Chest Pain Gastrointestinal: Abdominal Pain, Nausea, Vomiting. absent: Diarrhea Skin: absent: Rash, Pruritis Neurological: absent: Headache, Dizziness Psychiatric: absent: Anxiety, Depression, Suicidal Ideation Physical Exam Vital Signs Reviewed: Yes Vital Signs Temp Pulse Resp BP Pulse Ox 11/13/17 20:00 70 17 120/78 99 11/13/17 18:37 64 18 117/75 96 11/13/17 16:45 98.6 F 62 16 115/72 95 Temperature: Afebrile Blood Pressure: Normal Pulse: Regular Respiratory Rate: Normal Appearance: Positive for: Well-Appearing, Non-Toxic, Comfortable Pain Distress: Moderate Mental Status: Positive for: Alert and Oriented X 3 - Systems Exam Head: Present: Atraumatic, Normocephalic Pupils: Present: PERRL Extroacular Muscles: Present: EOMI Conjunctiva: Present: Normal Mouth: Present: Moist Mucous Membranes Neck: Present: Normal Range of Motion Respiratory/Chest: Present: Clear to Auscultation, Good Air Exchange. No: Respiratory Distress, Accessory Muscle Use Cardiovascular: Present: Regular Rate and Rhythm, Normal S1, S2. No: Murmurs Abdomen: Present: Tenderness (+epigastric), Normal Bowel Sounds. No: Distention , Peritoneal Signs, Rebound, Guarding Back: Present: Normal Inspection Upper Extremity: Present: Normal Inspection. No: Cyanosis, Edema Lower Extremity: Present: Normal Inspection. No: Edema Neurological: Present: GCS=15, CN II-XII Intact, Speech Normal, Motor Func Grossly Intact, Gait Normal, Memory Normal Skin: Present: Warm, Dry, Normal Color. No: Rashes Psychiatric: Present: Alert, Oriented x 3, Normal Insight, Normal Concentration Medical Decision Making ED Course and Treatment: 11/13/17 17:15 -labs/ua/lipase -CT abdomen and pelvis -IVF/pepcid/reglan -observe and reassess 11/13/17 21:06 -Labs are non-significant -UA show no UTI -CT abdomen and pelvis show No evidence of significant acute process except there is retained stool. -Pt. feels much better, eating and drinking well, request to be discharged home. -Discharge home with miralax, continue your prilosec at home, high fiber diet, stay hydrated, follow up with your own pmd and GI within 2 days, return to the ER for any new or worsening signs or symptoms. - Lab Interpretations Lab Results: 11/13/17 18:25 11/13/17 18:25 Lab Results 11/13/17 18:25: WBC 8.1, RBC 4.27, Hgb 11.4 L, Hct 35.1 L, MCV 82.2, MCH 26.7, MCHC 32.5, RDW 15.4 H, Plt Count 247, MPV 9.2, Gran % 46.2 L, Lymph % (Auto) 47.3 H, [place] % (Auto) 3.5, Eos % (Auto) 3.0, Baso % (Auto) 0.0, Gran # 3.75, Lymph # (Auto) 3.8 H, [place] # (Auto) 0.3, Eos # (Auto) 0.2, Baso # (Auto) 0.00 11/13/17 18:25: Sodium 144, Potassium 3.9, Chloride 107, Carbon Dioxide 27, Anion Gap 14, BUN 14, Creatinine 0.9, Est GFR ( Amer) > 60, Est GFR (Non- Af Amer) > 60, Random Glucose 92, Calcium 9.1, Total Bilirubin 0.3, AST 26, ALT 33, Alkaline Phosphatase 90, Total Protein 7.0, Albumin 3.7, Globulin 3.3, Albumin/Globulin Ratio 1.1, Lipase 104 11/13/17 17:00: Urine Color Yellow, Urine Appearance Clear, Urine pH 6.0, Ur Specific [place] 1.020, Urine Protein Negative, Urine Glucose (UA) Negative, Urine Ketones Negative, Urine Blood Negative, Urine Nitrate Negative, Urine Bilirubin Negative, Urine Urobilinogen 0.2, Ur Leukocyte Esterase Negative - RAD Interpretation Radiology Orders: 11/13/17 17:12 ABD & PELVIS IV CONTRAST ONLY [CT] Stat LIMITATIONS: Artifact related to the patient's body habitus. LOWER THORAX: No infiltrate seen in the lung bases. ABDOMEN: LIVER: Mild hepatomegaly, with the liver measuring 18 cm in length on the coronal images. GALLBLADDER AND BILE DUCTS: Cholecystectomy clips. No evidence of significant biliary ductal dilatation. PANCREAS: No CT evidence of acute pancreatitis. SPLEEN: No acute abnormality of the spleen identified. ADRENALS: No acute abnormality of the adrenal glands identified. SUMIT KAMARA | Final Radiology Report CONFIDENTIALITY STATEMENT This report is intended only for use by the referring physician, and only in accordance with law. If you received this in error, call [phone]. Page 2 of 2 KIDNEYS AND URETERS: No acute abnormality of the kidneys identified. No evidence of significant hydrouereteronephrosis. STOMACH AND BOWEL: Retained stool noted throughout the colon, with no evidence of a significant large bowel obstruction or fecal impaction. Otherwise, no significant abnormality of the bowel is identified. No acute abnormality of the stomach or duodenum identified. No evidence of small bowel obstruction. APPENDIX: Appendix is seen, and is within normal limits in appearance. PELVIS: BLADDER: No acute abnormality of the bladder identified. REPRODUCTIVE:No acute abnormality of the reproductive organs is seen. No acute abnormality of the uterus identified. No evidence of large adnexal masses. ABDOMEN and PELVIS: INTRAPERITONEAL SPACE: No evidence of free intraperitoneal air or fluid. BONES/JOINTS: No acute fractures or other acute bony abnormality noted. SOFT TISSUES: No acute abnormality of the visualized soft tissues is seen. VASCULATURE: No evidence of abdominal aortic aneurysm. No evidence of periaortic hemorrhage. LYMPH NODES: No evidence of diffuse lymphadenopathy. IMPRESSION: - No evidence of significant acute process. - See above for remaining findings. Thank you for allowing us to participate in the care of your patient. Dictated and Authenticated by: Carolina Washburn MD 11/13/2017 9:03 PM Eastern Time ([place] & [place]) Erp Technical Lead: Radiologist - Medication Orders Current Medication Orders: Sodium Chloride (Sodium Chloride 0.9%) 1,000 mls @ 100 mls/hr IV .Q10H [place] Last Admin: 11/13/17 17:56 Dose: 100 mls/hr eMAR Start Stop Document 11/13/17 17:56 SF (Rec: 11/13/17 17:56 SF [id number] Intravenous Solution Start Date 11/13/17 Start Time 17:56 Discontinued Medications Famotidine (Pepcid) 20 mg IVP STAT STA Stop: 11/13/17 17:14 Last Admin: 11/13/17 17:56 Dose: 20 mg IVP Administration Document 11/13/17 17:56 SF (Rec: 11/13/17 17:56 [id number] Charges for Administration # of IVP Administrations 1 Metoclopramide HCl (Reglan) 10 mg IVP STAT STA Stop: 11/13/17 17:16 Last Admin: 11/13/17 17:56 Dose: 10 mg IVP Administration Document 11/13/17 17:56 SF (Rec: 11/13/17 17:56 [facility] Charges for Administration # of IVP Administrations 1 - PA / DOCUMENT SPECIALIST / Resident Statement MD/DO has reviewed & agrees with the documentation as recorded. Disposition/Present on Arrival - Present on Arrival Any Indicators Present on Arrival: No History of DVT/PE: No History of Uncontrolled Diabetes: No Urinary Catheter: No History of Decub. Ulcer: No History Surgical Site Infection Following: None - Disposition Have Diagnosis and Disposition been Completed?: Yes Diagnosis: Abdominal pain, Constipation, Gastritis Disposition: HOME/ ROUTINE Disposition Time: 19:48 Patient Plan: Discharge Condition: IMPROVED Additional Instructions: -Discharge home with miralax, continue your prilosec at home, high fiber diet, stay hydrated, follow up with your own pmd and GI within 2 days, return to the ER for any new or worsening signs or symptoms. Prescriptions: Polyethylene Glycol 3350 [Miralax] 17 gm PO DAILY PRN #3 packet PRN Reason: Other Referrals: [employer] Bia Mena, [Non-Staff] - Follow up with primary Fritz Ambrosio MD [Medical Doctor] - Follow up with primary Forms: WORK NOTE"
[2017-11-13 16:47] VITALS: TEMP 98.6
[2017-11-13] MEDS ORDERED: Sodium Chloride 0.9% 1,000 ML IV SCH (17:15)
[2017-11-13 17:36] LABS: URINE BILIRUBIN NEGATIVE (NEGATIVE); URINE BLOOD NEGATIVE (NEGATIVE); URINE GLUCOSE (UA) NEGATIVE (NEGATIVE); URINE LEUKOCYTE ESTERASE NEGATIVE Leu/uL (NEGATIVE); URINE NITRATE NEGATIVE (NEGATIVE); URINE PROTEIN NEGATIVE mg/dL (<30 mg/dL); URINE UROBILINOGEN 0.2 E.U./dL (<1 E.U./dL)
[2017-11-13 17:40] LABS: URINE APPEARANCE CLEAR (CLEAR); URINE COLOR YELLOW (YELLOW)
[2017-11-13 18:34] LABS: EOS # 0.2 (0.0-0.7); GRAN # 3.75 (1.4-6.5); GRAN % 46.2 % (50.0-68.0); HEMOGLOBIN 11.4 g/dL (12.0-16.0); LYMPH # 3.8 (1.2-3.4); LYMPH % 47.3 % (22.0-35.0); MEAN CELL VOLUME 82.2 fl (80.0-105.0); MEAN CORPUSCULAR HEMOGLOBIN 26.7 pg (25.0-35.0); MEAN CORPUSCULAR HGB CONC 32.5 g/dl (31.0-37.0); MEAN PLATELET VOLUME 9.2 fl (7.0-11.0); MONO # 0.3 (0.1-0.6); MONO % 3.5 % (1.0-6.0); RBC 4.27 10^6/uL (3.5-6.1); RED CELL DISTRIBUTION WIDTH 15.4 % (11.5-14.5); WHITE BLOOD COUNT 8.1 10^3/ul (4.5-11.0)
[2017-11-13 18:48] LABS: ALB/GLOB RATIO 1.1 (1.1-1.8); ALBUMIN 3.7 g/dL (3.0-4.8); ALT/SGPT 33 U/L (7-56); AST/SGOT 26 U/L (14-36); BLOOD UREA NITROGEN 14 mg/dL (7-21); CALCIUM 9.1 mg/dL (8.4-10.5); GFR AFRICAN-AMERICAN > 60; GFR NON-AFRICAN AMERICAN > 60; LIPASE 104 U/L (23-300)
[2017-11-13] MEDS ORDERED: Iodixanol 320 MG/ML 100 ML BOTTLE IV ONE (19:31)
[2017-11-13 20:48] VITALS: BP 120/78; PULSE 70; RESP 17; O2SAT 99
--- NOTE | 2017-11-13 21:03 | CT ---
EXAM: CT Abdomen and Pelvis With Intravenous Contrast EXAM DATE/TIME: 11/13/2017 5:12 PM CLINICAL HISTORY: 32 years old, female; Pain; Abdominal pain; Generalized; Prior surgery; Surgery date: 6+ months; Surgery type: HX cholecystectomy; Additional info: Generalized abdominal pain TECHNIQUE: Axial computed tomography images of the abdomen and pelvis with intravenous contrast. All CT scans at this facility use one or more dose reduction techniques, viz.: automated exposure control; ma/kV adjustment per patient size (including targeted exams where dose is matched to indication; i.e. head); or iterative reconstruction technique. Coronal and sagittal reformatted images were created and reviewed. CONTRAST: 100 mL of visipaque 320 administered intravenously. COMPARISON: No relevant prior studies available. FINDINGS: LIMITATIONS: Artifact related to the patient's body habitus. LOWER THORAX: No infiltrate seen in the lung bases. ABDOMEN: LIVER: Mild hepatomegaly, with the liver measuring 18 cm in length on the coronal images. GALLBLADDER AND BILE DUCTS: Cholecystectomy clips. No evidence of significant biliary ductal dilatation. PANCREAS: No CT evidence of acute pancreatitis. SPLEEN: No acute abnormality of the spleen identified. ADRENALS: No acute abnormality of the adrenal glands identified. KIDNEYS AND URETERS: No acute abnormality of the kidneys identified. No evidence of significant hydrouereteronephrosis. STOMACH AND BOWEL: Retained stool noted throughout the colon, with no evidence of a significant large bowel obstruction or fecal impaction. Otherwise, no significant abnormality of the bowel is identified. No acute abnormality of the stomach or duodenum identified. No evidence of small bowel obstruction. APPENDIX: Appendix is seen, and is within normal limits in appearance. PELVIS: BLADDER: No acute abnormality of the bladder identified. REPRODUCTIVE:No acute abnormality of the reproductive organs is seen. No acute abnormality of the uterus identified. No evidence of large adnexal masses. ABDOMEN and PELVIS: INTRAPERITONEAL SPACE: No evidence of free intraperitoneal air or fluid. BONES/JOINTS: No acute fractures or other acute bony abnormality noted. SOFT TISSUES: No acute abnormality of the visualized soft tissues is seen. VASCULATURE: No evidence of abdominal aortic aneurysm. No evidence of periaortic hemorrhage. LYMPH NODES: No evidence of diffuse lymphadenopathy. IMPRESSION: - No evidence of significant acute process. - See above for remaining findings.
== END 2017-11-13 21:29 | disposition home or self-care (01) ==
LOC: ED 16:24
DX: K29.70 Gastritis, unspecified, without bleeding (principal); K59.00 Constipation, unspecified; R10.9 Unspecified abdominal pain
CPT/HCPCS: 74177; 80053; 81003; 83690; 85025; 96374; 96375; 99285; J2765; J7040; Q9967